=== PATIENT | male | born 1960 | race Caucasian/White ===

== ENCOUNTER → 2018-10-28 | Outpatient (CLI) | payer OTHER ==
--- NOTE | 2018-10-28 17:05 | 2DMMODE ---
[place] [address] 2 D/M-MODE ECHOCARDIOGRAM Name: DAWN JACOBSON Room: [facility]#: [id number] Admission: 10/28/18 Attend Phys: Awais Lee, Discharge: Date of : 60 Date of Service: 10/28/18 1705 Report #: [id number] THIS REPORT FOR: //name// APPROVED REPORT Study performed: 10/28/2018 10:36:40 EXAM: Comprehensive 2D, Doppler, and color-flow Echocardiogram Patient Location: Out-Patient Status: routine BSA: 2.16 HR: 78 bpm BP: 134/85 mmHg Other Information Study Quality: Good Indications Chest Pain 2D Dimensions IVSd: 11.21 (7-11mm) LVOT Diam: 20.92 (18-24mm) LVDd: 49.57 mm PWd: 11.21 (7-11mm) Ascending Ao: 32.74 (22-36mm) LVDs: 30.07 (25-40mm) Aortic Root: 26.38 mm Volumes Left Atrial Volume (Systole) LA ESV Index: 15.10 mL/m2 Aortic Valve AoV Peak Saul.: 1.50 m/s AO Peak Gr.: 9.04 mmHg LVOT Max P.89 mmHg AO Mean Gr.: 5.60 mmHg LVOT Mean P.65 mmHg LVOT Max V: 0.99 m/s AO V2 VTI: 31.06 cm LVOT Mean V: 0.57 m/s KELY (VTI): 2.18 cm2 LVOT V1 VTI: 19.69 cm Mitral Valve E/A Ratio: 0.90 MV Decel. Time: 308.72 ms MV E Max Saul.: 0.53 m/s MV PHT: 89.53 [place] [address] 2 D/M-MODE ECHOCARDIOGRAM Name: DAWN JACOBSON Room: [facility]#: [id number] Admission: 10/28/18 Attend Phys: Awais Lee, Discharge: Date of : 60 Date of Service: 10/28/18 1705 Report #: [id number] MVA (PHT): 2.46 cm2 TDI E/Lateral E': 5.30 E/Medial E': 7.57 Medial E' Saul.: 0.07 m/s Lateral E' Saul.: 0.10 m/s Pulmonary Valve PV Peak Saul.: 0.98 m/s PV Peak Gr.: 3.87 mmHg Tricuspid Valve RAP Estimate: 5.00 mmHg TR Peak Gr.: 18.83 mmHg RVSP: 23.83 mmHg PA Pressure: 23.83 mmHg Left Ventricle The left ventricle is normal size. There is normal LV segmental wall motion. Mild concentric left ventricular hypertrophy. Left ventricular systolic function is normal. The left ventricular ejection fraction is within the normal range. LVEF is 55-60%. Grade I - abnormal relaxation pattern. Right Ventricle The right ventricle is normal size. The right ventricular systolic function is normal. Atria The left atrium size is normal. The right atrium size is normal. Aortic Valve Aortic valve is mildly calcified. No aortic regurgitation is present. There is no aortic valvular stenosis. Mitral Valve The mitral valve is normal in structure. There is no mitral valve regurgitation noted. No evidence of mitral valve stenosis. Tricuspid Valve The tricuspid valve is normal in structure. Trace to mild tricuspid regurgitation. Pulmonic Valve The pulmonary valve is normal in structure. There is no pulmonic [place] [address] 2 D/M-MODE ECHOCARDIOGRAM Name: DAWN JACOBSON LEXIE Room: [facility]#: [id number] Admission: 10/28/18 Attend Phys: Awais Lee, Discharge: Date of : 60 Date of Service: 10/28/18 1705 Report #: [id number] Great Vessels The aortic root is normal in size. IVC is normal in size and collapses >50% with inspiration. Pericardium There is no pericardial effusion. <Conclusion> The left ventricle is normal size. Mild concentric left ventricular hypertrophy. Left ventricular systolic function is normal. The left ventricular ejection fraction is within the normal range. LVEF is 55-60%. Grade I - abnormal relaxation pattern. The right ventricle is normal size. The left atrium size is normal. Aortic valve is mildly calcified. No aortic regurgitation is present. There is no aortic valvular stenosis. The mitral valve is normal in structure. The tricuspid valve is normal in structure. IVC is normal in size and collapses >50% with inspiration. There is no pericardial effusion. There is normal LV segmental wall motion. <ELECTRONICALLY SIGNED> By: Brad Gardiner MD, FACC 10/28/18 170 04 04 Brad Gardiner MD, FACC /INF
--- NOTE | 2018-10-29 10:15 | CARDNUC ---
[place] [address] CARDIAC NUCLEAR IMAGING REPORT Name: DAWN JACOBSON Room: [facility]#: [id number] Admission: 10/28/18 Attend Phys: Awais Lee, Discharge: Date of : 60 Date of Service: 10/29/18 1015 Report #: [id number] THIS REPORT FOR: //name// APPROVED REPORT Imaging Protocol: Rest Tc-99m/Stress Tc-99m 1 day Study performed: 10/28/2018 08:45:00 Indication: Chest pain Patient Location: Out-Patient Stress Tech: Hailey Mcfarlane Stress Nurse: Susy Dawson RN NM Tech:OMAR Tuttle Ht: 5 ft 11 in Wt: 226 lbs BSA: 2.22 m2 BMI: 31.51 Medical History Medical History: hyperlipodemia, hypertension Medications: zetia, amlodipine, losartan, asa Allergies: penicillin Cardiac Risk Factors: age, hypertension, hyperlipidmia, tobacco Exercise History: Physically active Resting Data Rest SPECT myocardial perfusion imaging was performed in supine position 30 minutes following the intravenous injection of 10.5 mCi of Tc-99m Sestamibi. Time of rest injection: 904 Date: 10/28/2018 Time of rest imagin The images were gated to evaluate regional wall motion and calculate left ventricular ejection fraction. Administration Route: IV Administration Site: Right AC Pharmacologic Stress Pharmacologic stress test was performed by injecting Regadenoson 0.4 mg IV push over 10-15 seconds immediately followed by the intravenous injection of 35.7 mCi of Tc-99m Sestamibi. Time of stress injection: 1030 Time of stress imagin Administration Route: IV Administration Site: Right AC Gated Stress SPECT was performed 40 [place] [address] CARDIAC NUCLEAR IMAGING REPORT Name: DAWN JACOBSON Room: [facility] Shefali#: [id number] Admission: 10/28/18 Attend Phys: Awais Lee, Discharge: Date of : 60 Date of Service: 10/29/18 1015 Report #: [id number] injection. The images were gated to evaluate regional wall motion and calculate left ventricular ejection fraction. Prone imaging was performed. Stress Test Details Stress Test: Pharmacologic stress testing performed using 0.4 mg of regadenoson per 5 mL given IV over 10 seconds. Reason for pharmacologic stress test: physical limitation. HR Max Heart Rate (APMHR): 162 bpm Resting HR: 69 bpm Target HR (85% APMHR): 137 bpm Max HR Achieved: 130 bpm % of APMHR: 80 Recovery HR: 98 bpm HR response to stress: normal BP Resting BP: 135/81 mmHg Max BP: 179/98 mmHg Recovery BP: 129/79 mmHg BP response to stress: normal ECG Resting ECG: nsr RBBB complete Stress ECG: same ST Change: none Recovery ECG: nsr rbbb Recovery ST Change: none Clinical Reason for Termination: Completed protocol Stress Symptoms: None Exercise duration: 0 min sec Exercise capacity: 1 METs Nurse Comments pt has back problems. unable to walk on treadmill Study Quality Study: Good Artifact: No artifact Study Data At rest, the left ventricular ejection fraction was 62%.. Post stress, the left ventricular ejection was 67%.. SSS: [address] [place] [address] CARDIAC NUCLEAR IMAGING REPORT Name: DAWN JACOBSON Room: [facility]#: [id number] Admission: 10/28/18 Attend Phys: Awais Lee, Discharge: Date of : 60 Date of Service: 10/29/18 1015 Report #: [id number] SRS: 3 SDS: 0 TID = 0.90. Perfusion Review of rest data reveals normal perfusion, without perfusion defects.Imaging obtained following vasodilator stress demonstrate a similar, uniform uptake of tracer without defects. Prone imaging was normal. LVEDV is normal.No segental wall motion abnormality seen. Wall Motion normal all segments Nuclear Conclusion ECG Findings: negative for ischemia Clinical Findings: negative for ischemia Nuclear Findings: negative for ischemia Exercise Capacity: not assessed Left Ventricular Function: normal Risk Study: low Negative perfusion nuclear stress test for ischemia or infarct. <ELECTRONICALLY SIGNED> By: Awais Lee MD, FACC 10/29/18 1015 1015 1015 Awais Lee MD, FAC /INF
== END ==
LOC: M.CRD 09-29 17:42 → M.NUC 08:00
DX: I51.7 Cardiomegaly (principal); I20.8 Other forms of angina pectoris